=== PATIENT | female | born 1965 | race Caucasian/White ===

== ENCOUNTER 2016-10-22 17:03 | Emergency (ER) | payer MEDICARE, MEDICAID ==
[2016-10-22 17:54] VITALS: BMI 23.9
[2016-10-22 17:56] VITALS: TEMP 99.7
[2016-10-22 18:37] LABS: AUTOMATED BASOPHIL 0.2 % (0-2); AUTOMATED EOSINOPHIL 1.5 % (0-5); AUTOMATED LYMPH 32.6 % (17-44); AUTOMATED MONOCYTE 5.4 % (3-10); AUTOMATED NEUTROPHIL 60.3 % (45-76); MPV 7.3 fL (7.4-10.4)
[2016-10-22 18:47] LABS: BLOOD UREA NITROGEN 8 MG/DL (7-17); CALC CORRECTED 8.9 MG/DL (8.4-10.2); CALCIUM 8.8 MG/DL (8.4-10.2); CALCULATED OSMOLALITY 247 MOs/Kg (270-290); CHLORIDE 97 mEq/L (98-107); ETOH-MGDL < 10 mg/dL; GLUCOSE 107 MG/DL (70-99); SODIUM LEVEL 129 mEq/L (137-146); TOTAL PROTEIN 7.2 G/DL (6.3-8.2)
[2016-10-22 21:36] LABS: ALL NEG? NO
[2016-10-22 21:43] LABS: MDMA* NEG (NEGATIVE); METHAMPHETAMINES NEG (NEGATIVE); OXYCODONE NEG (NEGATIVE)
[2016-10-22 21:48] VITALS: PULSE 70
[2016-10-22 21:51] LABS: LEUKOCYTES/URINE TRACE (NEGATIVE); NITRITE/URINE NEG (NEGATIVE); URINE OCCULT BLOOD NEG (NEG/TRACE)
--- NOTE | 2016-10-22 22:26 | EDPRACDOC ---
- General Information Chief Complaint: Psychiatric Illness Stated Complaint: PSYCH EVAL (WRIST LAC) Time Seen by Provider: 10/22/16 18:27 Information Source: Patient Mode of Arrival: Ambulance Home Medications: Home Medications Levothyroxine Sodium [Synthroid] 125 mcg PO DAILY 09/03/12 Trazodone HCl 150 mg PO HS 09/03/12 Levan [Eskalith] 300 mg PO BID 11/23/12 Venlafaxine HCl ER [Effexor Xr] 300 mg PO DAILY 05/30/14 Amphet Asp/Amphet/D-Amphet [Adderall 10 mg Tablet] 10 mg PO BID 08/28/14 Haloperidol [Haldol] 2 mg PO BID 12/20/14 Prazosin [Minipres] 2 mg PO HS 07/12/15 Clonazepam [Klonopin] 1 mg PO TID PRN #12 tablet 10/07/16 Allergies/Adverse Reactions: Allergies Allergy/AdvReac Type Severity Reaction Status Date / Time NSAIDS (Non-Steroidal Allergy Severe PHYCHOTIC Verified 10/22/16 17:54 Anti-Inflamma BREAK DOWN [Nsaids] bupropion HCl Allergy Mild COULD NOT Verified 10/22/16 17:54 [From Wellbutrin] WALK metoclopramide HCl Allergy Mild RASH Verified 10/22/16 17:54 [From Reglan] ondansetron [From ZOFRAN ODT] Allergy Mild RASH AND Verified 10/22/16 17:54 EYE PROBLEM Penicillins Allergy Mild RASH Verified 10/22/16 17:54 prochlorperazine edisylate Allergy Mild RASH Verified 10/22/16 17:54 [From Compazine] prochlorperazine maleate Allergy Mild RASH Verified 10/22/16 17:54 [From Compazine] sumatriptan [From Imitrex] Allergy Mild CAN NOT Verified 10/22/16 17:54 WALK sumatriptan succinate Allergy Mild CAN NOT Verified 10/22/16 17:54 [From Imitrex] WALK dexamethasone [From Decadron] Allergy See Verified 10/22/16 17:54 Comments dexamethasone sod phosphate Allergy See Verified 10/22/16 17:54 [From Decadron] Comments Neuromuscular Blockers, Allergy See Verified 10/22/16 17:54 Steroidal Comments [Steroidal Neuromuscular Blockers] prednisone Allergy Anaphylaxis Verified 10/22/16 17:54 * ziprasidone HCl [From Geodon] Allergy Agitation Verified 10/22/16 17:54 ziprasidone mesylate Allergy Agitation Verified 10/22/16 17:54 [From Tatiana] - History of Present Illness Onset: TODAY HPI: THE PATIENT RECENTLY DISCHARGED FROM [facility]. STATES THAT SHE WAS STARTED ON NEW MEDICATIONS, AND SHE FEELS GREAT. TODAY SHE WAS THINKING ABOUT TRAUMATIC EXPERIENCES IN HER CHILDHOOD IN HER PAST. SHE THEN TOOK FINGER NAIL CLIPPERS AND THEN A KNIFE AND PUT MULTIPLE SCRATCHES ON EACH OVER FOREARM. SHE STATES THAT SHE DID THIS TO RELIEVE STRESS. THIS SHE DID NOT WANT TO HURT HERSELF HER SHE DID NOT WANT TO HURT OTHERS. HOWEVER PATIENT'S MOTHER CALLED 911 BECAUSE SHE THOUGHT THE PATIENT HAD INTENTIONS OF COMMITTING SUICIDE OR KILLING SOMEBODY ELSE. UPON ARRIVAL TO THE EMERGENCY DEPARTMENT PATIENT IMMEDIATELY WANTED TO LEAVE WITHOUT ANY EVALUATION OF THEREFORE SHE WAS MADE BY AN INVOLUNTARY COMMITMENT BY ME. Relevant History: Reports: Depression, Anxiety Tetanus Up To Date?: Yes Associated Signs and Symptoms: Reports: Anxiety Other History: TETANUS UP-TO-DATE - Treatment Prior to ED Arrival Reported Medications/Treatment ST[employer]OR EMS Treatment BLS IV No ED Past Medical History - History Reviewed Yes Nurses notes reviewed and agree except as marked - Patient Medical History Neurological History: Reports: Migraine Cardiac History: Reports: Hypercholesterolemia. Denies: Hypertension, Heart Attack Psychological History: Reports: Depression, Anxiety. Denies: Substance Use Disorder Systemic History: Reports: Cancer (SKIN/ear) Surgical History: Reports: Cholecystectomy, Other (KNEE, JAW) - Social Medical History Smoking Status: Current some day smoker Social History: Reports: Marijuana Use. Denies: Substance Use Disorder ETOH: None Substance Abuse: None Lives With: Family Lives In: Home EDM Review of Systems - Review of Systems ROS Negative Except as Marked: Yes All systems reviewed and were negative except as marked - Physical Exam Constitutional: Alert (Awake), No apparent distress (CALM COOPERATIVE.) Oriented to: Time, Person, Place Last recorded Vital Signs: Last Vital Signs Temp 99.7 F 10/22/16 17:54 Pulse 70 10/22/16 21:30 Resp 20 10/22/16 21:30 BP 106/70 10/22/16 21:30 Pulse Ox 98 10/22/16 21:30 Oxygen Pulse Oxygen Saturation 98 O2 Device Room Air Oxygen Flow Rate Fraction of Inspired Oxygen ( FIO2) - HEENT Head: Normal ( normocephalic) Eye Exam: Normal (PERRL, EOMI, Sclera white) Oropharynx: Normal (Pharynx:Moist without exudate,Gums-no swelling) Tympanic Membrane: Normal ENT EAC: Normal TMJ: Normal Nose: No Symptoms Reported (septum midline) Neck: Normal (FROM, trachea at midline) - Respiratory/Cardiovascular Respiratory: Normal - CTA (BBS clear to auscultation without adventitious sounds ) Cardiovascular: Normal (RRR without murmur, gallop or rub) - GI Auscultation: Normal (NABS) Palpation: Normal (Soft,No rebound or guarding, non distended) Tenderness: Non tender Enciso's Sign: Negative - Musculoskeletal Back: Normal (Non-Tender) Extremities: Normal (Normal tone, Pulses 2+ No cyanosis or edema, FROM), Other ( BOTH FOREARMS PREDOMINANT ON THE LEFT HAVE MULTIPLE LINEAR ABRASIONS PERPENDICULAR TO THE LONG AXIS OF THE FOREARM THIS HEMOSTATIC WOUNDS ARE NOT NOT REQUIRING SURGICAL REPAIR.) - Integumentary Skin: Normal, Warm, Dry Lymphatics: Normal (no adenopathy) - Neurologic Memory Impaired: Normal Motor Function: Normal (Normal tone, Pulses 2+ No cyanosis or edema, FROM) Cranial Nerve: Normal (CN II-X11 intact sensation, strength 5/5) Cerebellar: Normal Mood Description: Normal Perception: Normal - Re-evaluation Re-evaluation 3 Re-evaluation Time: 23:39 DISCUSSED WITH ANIRUDH OF THERAPEUTIC ALTERNATIVES WE AGREE OUTPATIENT MANAGEMENT APPROPRIATE. - Results 10/22/16 18:10 10/22/16 18:10 WBC 9.6 xk/uL (3.8-10.8) 10/22/16 18:10 RBC 3.69 xM/uL (4.20-5.40) L 10/22/16 18:10 Hgb 12.5 g/dL (12.0-16.0) 10/22/16 18:10 Hct 35.8 % (36-47) L 10/22/16 18:10 MCV 97 fL (81-99) 10/22/16 18:10 MCH 33.9 pg (27-32) H 10/22/16 18:10 MCHC 34.9 g/dl (33-36) 10/22/16 18:10 RDW 14.5 % (11.5-14.5) 10/22/16 18:10 Plt Count 235 xk/uL (130-400) 10/22/16 18:10 MPV 7.3 fL (7.4-10.4) L 10/22/16 18:10 Neut % (Auto) 60.3 % (45-76) 10/22/16 18:10 Lymph % (Auto) 32.6 % (17-44) 10/22/16 18:10 [place] % (Auto) 5.4 % (3-10) 10/22/16 18:10 Eos % (Auto) 1.5 % (0-5) 10/22/16 18:10 Baso % (Auto) 0.2 % (0-2) 10/22/16 18:10 Absolute Neuts (auto) 5.76 xk/uL (1.7-8.2) 10/22/16 18:10 Absolute Lymphs (auto) 3.07 xk/uL (0.65-4.75) 10/22/16 18:10 Sodium 129 mEq/L (137-146) L 10/22/16 18:10 Potassium 3.8 mEq/L (3.5-5.1) 10/22/16 18:10 Chloride 97 mEq/L (98-107) L 10/22/16 18:10 Carbon Dioxide 20 mMOL/L (22-33) L 10/22/16 18:10 Anion Gap 16 mEq/L (8-16) 10/22/16 18:10 BUN 8 MG/DL (7-17) 10/22/16 18:10 Creatinine 0.80 MG/DL (0.52-1.04) 10/22/16 18:10 Estimated GFR (MDRD) > 60 mL/min (>=60) 10/22/16 18:10 Glucose 107 MG/DL (70-99) H 10/22/16 18:10 Calculated Osmolality 247 MOs/Kg (270-290) L 10/22/16 18:10 Calcium 8.8 MG/DL (8.4-10.2) 10/22/16 18:10 Corrected Calcium 8.9 MG/DL (8.4-10.2) 10/22/16 18:10 Total Bilirubin 0.3 MG/DL (0.2-1.3) 10/22/16 18:10 AST 16 IU/L (14-36) 10/22/16 18:10 ALT 30 IU/L (9-52) 10/22/16 18:10 Alkaline Phosphatase 63 IU/L (38-126) 10/22/16 18:10 Total Protein 7.2 G/DL (6.3-8.2) 10/22/16 18:10 Albumin 3.9 G/DL (3.5-5.0) 10/22/16 18:10 Urine Color Yellow 10/22/16 21:35 Urine Clarity Clear 10/22/16 21:35 Urine pH 7.0 (5.0-8.0) 10/22/16 21:35 Ur Specific [place] 1.005 (1.003-1.035) 10/22/16 21:35 Urine Protein Neg (NEG/TRACE) 10/22/16 21:35 Urine Glucose (UA) Neg (NEGATIVE) 10/22/16 21:35 Urine Ketones Neg (NEGATIVE) 10/22/16 21:35 Urine Occult Blood Neg (NEG/TRACE) 10/22/16 21:35 Urine Nitrite Neg (NEGATIVE) 10/22/16 21:35 Urine Bilirubin Neg (NEGATIVE) 10/22/16 21:35 Urine Urobilinogen <2.0 MG/DL (0-1) 10/22/16 21:35 Ur Leukocyte Esterase Trace (NEGATIVE) H 10/22/16 21:35 Urine RBC 2-5 (0-5) 10/22/16 21:35 Urine WBC 2-5 (0-5) 10/22/16 21:35 Ur Epithelial Cells 2+ 10/22/16 21:35 Urine Bacteria 1+ (NEG/FEW) H 10/22/16 21:35 Urine Opiates Screen Neg (NEGATIVE) 10/22/16 21:35 Ur Oxycodone Screen Neg (NEGATIVE) 10/22/16 21:35 Urine Methadone Screen Neg (NEGATIVE) 10/22/16 21:35 Ur Barbiturates Screen Neg (NEGATIVE) 10/22/16 21:35 Ur Tricyclics Screen Neg (NEGATIVE) 10/22/16 21:35 Ur Phencyclidine Scrn Neg (NEGATIVE) 10/22/16 21:35 Ur Amphetamines Screen *positive* (NEGATIVE) H 10/22/16 21:35 U Methamphetamines Scrn Neg (NEGATIVE) 10/22/16 21:35 Urine MDMA Screen Neg (NEGATIVE) 10/22/16 21:35 U Benzodiazepines Scrn *positive* (NEGATIVE) H 10/22/16 21:35 Urine Cocaine Screen Neg (NEGATIVE) 10/22/16 21:35 Ur THC Screen Neg (NEGATIVE) 10/22/16 21:35 Plasma/Serum Ethyl Alc % (<0.01) 10/22/16 18:10 Lab Results 10/22/16 10/22/16 10/22/16 21:35 21:35 18:10 WBC 9.6 RBC 3.69 L Hgb 12.5 Hct 35.8 L MCV 97 MCH 33.9 H MCHC 34.9 RDW 14.5 Plt Count 235 MPV 7.3 L Neut % (Auto) 60.3 Lymph % (Auto) 32.6 [place] % (Auto) 5.4 Eos % (Auto) 1.5 Baso % (Auto) 0.2 Absolute Neuts (auto) 5.76 Absolute Lymphs (auto) 3.07 Sodium Potassium Chloride Carbon Dioxide Anion Gap BUN Creatinine Estimated GFR (MDRD) Glucose Calculated Osmolality Calcium Corrected Calcium Total Bilirubin AST ALT Alkaline Phosphatase Total Protein Albumin Urine Color Yellow Urine Clarity Clear Urine pH 7.0 Ur Specific [place] 1.005 Urine Protein Neg Urine Glucose (UA) Neg Urine Ketones Neg Urine Occult Blood Neg Urine Nitrite Neg Urine Bilirubin Neg Urine Urobilinogen <2.0 Ur Leukocyte Esterase Trace H Urine RBC 2-5 Urine WBC 2-5 Ur Epithelial Cells 2+ Urine Bacteria 1+ H Urine Opiates Screen Neg Ur Oxycodone Screen Neg Urine Methadone Screen Neg Ur Barbiturates Screen Neg Ur Tricyclics Screen Neg Ur Phencyclidine Scrn Neg Ur Amphetamines Screen *positive* H U Methamphetamines Scrn Neg Urine MDMA Screen Neg U Benzodiazepines Scrn *positive* H Urine Cocaine Screen Neg Ur THC Screen Neg Plasma/Serum Ethyl Alc 10/22/16 18:10 WBC RBC Hgb Hct MCV MCH MCHC RDW Plt Count MPV Neut % (Auto) Lymph % (Auto) [place] % (Auto) Eos % (Auto) Baso % (Auto) Absolute Neuts (auto) Absolute Lymphs (auto) Sodium 129 L Potassium 3.8 Chloride 97 L Carbon Dioxide 20 L Anion Gap 16 BUN 8 Creatinine 0.80 Estimated GFR (MDRD) > 60 Glucose 107 H Calculated Osmolality 247 L Calcium 8.8 Corrected Calcium 8.9 Total Bilirubin 0.3 AST 16 ALT 30 Alkaline Phosphatase 63 Total Protein 7.2 Albumin 3.9 Urine Color Urine Clarity Urine pH Ur Specific [place] Urine Protein Urine Glucose (UA) Urine Ketones Urine Occult Blood Urine Nitrite Urine Bilirubin Urine Urobilinogen Ur Leukocyte Esterase Urine RBC Urine WBC Ur Epithelial Cells Urine Bacteria Urine Opiates Screen Ur Oxycodone Screen Urine Methadone Screen Ur Barbiturates Screen Ur Tricyclics Screen Ur Phencyclidine Scrn Ur Amphetamines Screen U Methamphetamines Scrn Urine MDMA Screen U Benzodiazepines Scrn Urine Cocaine Screen Ur THC Screen Plasma/Serum Ethyl Alc - EKG EKG #1 EKG Time: 18:02 -: Yes EKG interpreted by me Rate: bpm: 81 [place]: Normal Rhythm: NSR Block: None Hypertrophy: None ST: Nonsp - Additional Information Additional Information: UNCLEAR IF THERE IS ANY SUICIDAL HOMICIDAL IDEATION AT THIS TIME. THIS APPEARS TO BE MORE CUTTING RELATED TO ANXIETY OPPOSED TO WANTING TO CAUSE HARM TO HER HEALTH. IN FACT SHE WANTS THE ABRASIONS DRESSED SO DID NOT GET INFECTED. AT THIS TIME WILL DEFER TO THERAPEUTIC ALTERNATIVES REGARDING OUTPATIENT VERSUS INPATIENT TREATMENT. - Departure Disposition: Home Condition: Stable Final Diagnosis: Deliberate self-cutting, Anxiety Instructions: Abrasion (ED) Referrals: None,No Provider [Primary Care Provider] - One Week
[2016-10-23 00:01] VITALS: BP 106/72
== END 2016-10-22 23:55 | disposition home or self-care (01) ==
LOC: ED 17:03
DX: S61.519A Laceration without foreign body of unspecified wrist, initial encounter (principal); Y28.9XXA Contact with unspecified sharp object, undetermined intent, initial encounter; Y93.9 Activity, unspecified
CPT/HCPCS: 36415; 80053; 80178; 80307; 81001; 85025; 86592; 93005; 99284

== ENCOUNTER 2016-11-09 14:05 | Emergency (ER) | payer MEDICARE, MEDICAID ==
[2016-11-09 14:21] VITALS: TEMP 99.6; BMI 24.7
[2016-11-09 14:37] LABS: AUTOMATED BASOPHIL 1.7 % (0-2); AUTOMATED LYMPH 32.4 % (17-44); AUTOMATED MONOCYTE 4.8 % (3-10); AUTOMATED NEUTROPHIL 60.1 % (45-76)
[2016-11-09 14:49] LABS: PARTIAL THROMB. TIME 25.2 SEC (22-35)
[2016-11-09 14:51] LABS: BLOOD UREA NITROGEN 6 MG/DL (7-17); CALCIUM 9.7 MG/DL (8.4-10.2); CALCULATED OSMOLALITY 249 MOs/Kg (270-290); CHLORIDE 99 mEq/L (98-107); GLUCOSE 98 MG/DL (70-99); SODIUM LEVEL 130 mEq/L (137-146); TOTAL PROTEIN 7.2 G/DL (6.3-8.2)
--- NOTE | 2016-11-09 16:39 | EDPRACDOC ---
- General Information Chief Complaint: Generalized Weakness Stated Complaint: LOW SODIUM SENT BY DOCTOR TO ED Time Seen by Provider: 11/09/16 16:23 Information Source: Patient Home Medications: Home Medications Trazodone HCl 150 mg PO HS 09/03/12 Venlafaxine HCl ER [Effexor Xr] 300 mg PO DAILY 05/30/14 Prazosin [Minipres] 2 mg PO HS 07/12/15 Clonazepam [Klonopin] 1 mg PO TID PRN #12 tablet 10/07/16 Dextroamphetamine/Amphetamine [Adderall Xr 10 mg Capsule] 10 mg PO BID 11/09/16 Lamotrigine [Lamictal] 25 mg PO BID 11/09/16 Levothyroxine Sodium [Levothroid] 175 mcg PO DAILY 11/09/16 Allergies/Adverse Reactions: Allergies Allergy/AdvReac Type Severity Reaction Status Date / Time NSAIDS (Non-Steroidal Allergy Severe PHYCHOTIC Verified 11/09/16 15:09 Anti-Inflamma BREAK DOWN [Nsaids] bupropion HCl Allergy Mild COULD NOT Verified 11/09/16 15:09 [From Wellbutrin] WALK metoclopramide HCl Allergy Mild RASH Verified 11/09/16 15:09 [From Reglan] ondansetron [From ZOFRAN ODT] Allergy Mild RASH AND Verified 11/09/16 15:09 EYE PROBLEM Penicillins Allergy Mild RASH Verified 11/09/16 15:09 prochlorperazine edisylate Allergy Mild RASH Verified 11/09/16 15:09 [From Compazine] prochlorperazine maleate Allergy Mild RASH Verified 11/09/16 15:09 [From Compazine] sumatriptan [From Imitrex] Allergy Mild CAN NOT Verified 11/09/16 15:09 WALK sumatriptan succinate Allergy Mild CAN NOT Verified 11/09/16 15:09 [From Imitrex] WALK dexamethasone [From Decadron] Allergy See Verified 11/09/16 15:09 Comments dexamethasone sod phosphate Allergy See Verified 11/09/16 15:09 [From Decadron] Comments Neuromuscular Blockers, Allergy See Verified 11/09/16 15:09 Steroidal Comments [Steroidal Neuromuscular Blockers] prednisone Allergy Anaphylaxis Verified 11/09/16 15:09 * ziprasidone HCl [From Geodon] Allergy Agitation Verified 11/09/16 15:09 ziprasidone mesylate Allergy Agitation Verified 11/09/16 15:09 [From Tatiana] - History of Present Illness Onset: unknown HPI: PT REPORTS SHE WAS SENT BY PER PCP AT [facility]. TOLD TO COME TO FOR LOW SODIUM. IN ED SODIUM 130. NO OTHER SYMPTOMS. ED Past Medical History - Patient Medical History Neurological History: Reports: Migraine Cardiac History: Reports: Hypercholesterolemia. Denies: Hypertension, Heart Attack Psychological History: Reports: Depression, Anxiety. Denies: Substance Use Disorder Systemic History: Reports: Cancer (SKIN/ear) Surgical History: Reports: Cholecystectomy, Other (KNEE, JAW) - Social Medical History Smoking Status: Heavy tobacco smoker (5 or more cigarettes/day or daily pipe/ cigar) Social History: Reports: Marijuana Use. Denies: Substance Use Disorder EDM Review of Systems - Review of Systems ROS Negative Except as Marked: Yes All systems reviewed and were negative except as marked Constitutional: No Symptoms Reported Eyes: No Symptoms Reported Respiratory: No Symptoms Reported Cardiovascular: No Symptoms Reported Gastrointestinal: No Symptoms Reported Genitourinary: No Symptoms Reported Neurological: No Symptoms Reported - Physical Exam Constitutional: Alert (Awake), No apparent distress Oriented to: Time, Person, Place Last recorded Vital Signs: Last Vital Signs Temp 99.6 F 11/09/16 14:19 Pulse 82 11/09/16 14:21 Resp 18 11/09/16 14:21 BP 125/58 L 11/09/16 14:21 Pulse Ox 99 11/09/16 14:21 Oxygen Pulse Oxygen Saturation 99 O2 Device Room Air Oxygen Flow Rate Fraction of Inspired Oxygen ( FIO2) - HEENT Head: Normal ( normocephalic) Eye Exam: Normal (PERRL, EOMI, Sclera white) Oropharynx: Normal (Pharynx:Moist without exudate,Gums-no swelling) Nose: No Symptoms Reported (septum midline) Neck: Normal (FROM, trachea at midline) - Respiratory/Cardiovascular Respiratory: Normal - CTA (BBS clear to auscultation without adventitious sounds ) Cardiovascular: Normal (RRR without murmur, gallop or rub) - GI Auscultation: Normal (NABS) Palpation: Normal (Soft,No rebound or guarding, non distended) Tenderness: Non tender Enciso's Sign: Negative - Musculoskeletal Back: Normal (Non-Tender) Extremities: Normal (Normal tone, Pulses 2+ No cyanosis or edema, FROM) - Integumentary Skin: Normal, Warm, Dry Lymphatics: Normal (no adenopathy) - Neurologic Memory Impaired: Normal Motor Function: Normal (Normal tone, Pulses 2+ No cyanosis or edema, FROM) Cranial Nerve: Normal (CN II-X11 intact sensation, strength 5/5) Cerebellar: Normal Mood Description: Normal Perception: Normal - Results 11/09/16 14:25 11/09/16 14:25 WBC 8.3 xk/uL (3.8-10.8) 11/09/16 14:25 RBC 3.95 xM/uL (4.20-5.40) L 11/09/16 14:25 Hgb 13.2 g/dL (12.0-16.0) 11/09/16 14:25 Hct 38.3 % (36-47) 11/09/16 14:25 MCV 97 fL (81-99) 11/09/16 14:25 MCH 33.3 pg (27-32) H 11/09/16 14:25 MCHC 34.3 g/dl (33-36) 11/09/16 14:25 RDW 14.3 % (11.5-14.5) 11/09/16 14:25 Plt Count 239 xk/uL (130-400) 11/09/16 14:25 MPV 7.0 fL (7.4-10.4) L 11/09/16 14:25 Neut % (Auto) 60.1 % (45-76) 11/09/16 14:25 Lymph % (Auto) 32.4 % (17-44) 11/09/16 14:25 [place] % (Auto) 4.8 % (3-10) 11/09/16 14:25 Eos % (Auto) 1.0 % (0-5) 11/09/16 14:25 Baso % (Auto) 1.7 % (0-2) 11/09/16 14:25 Absolute Neuts (auto) 4.98 xk/uL (1.7-8.2) 11/09/16 14:25 Absolute Lymphs (auto) 2.66 xk/uL (0.65-4.75) 11/09/16 14:25 PT 10.6 SEC (9.2-11.2) 11/09/16 14:25 INR 1.0 11/09/16 14:25 APTT 25.2 SEC (22-35) 11/09/16 14:25 Sodium 130 mEq/L (137-146) L 11/09/16 14:25 Potassium 4.3 mEq/L (3.5-5.1) 11/09/16 14:25 Chloride 99 mEq/L (98-107) 11/09/16 14:25 Carbon Dioxide 20 mMOL/L (22-33) L 11/09/16 14:25 Anion Gap 15 mEq/L (8-16) 11/09/16 14:25 BUN 6 MG/DL (7-17) L 11/09/16 14:25 Creatinine 0.70 MG/DL (0.52-1.04) 11/09/16 14:25 Estimated GFR (MDRD) > 60 mL/min (>=60) 11/09/16 14:25 Glucose 98 MG/DL (70-99) 11/09/16 14:25 Calculated Osmolality 249 MOs/Kg (270-290) L 11/09/16 14:25 Calcium 9.7 MG/DL (8.4-10.2) 11/09/16 14:25 Total Bilirubin 0.4 MG/DL (0.2-1.3) 11/09/16 14:25 AST 18 IU/L (14-36) 11/09/16 14:25 ALT 23 IU/L (9-52) 11/09/16 14:25 Alkaline Phosphatase 69 IU/L (38-126) 11/09/16 14:25 Troponin I < 0.01 ng/mL (<.04) 11/09/16 14:25 Total Protein 7.2 G/DL (6.3-8.2) 11/09/16 14:25 Albumin 4.1 G/DL (3.5-5.0) 11/09/16 14:25 Lab Results 11/09/16 11/09/16 11/09/16 14:25 14:25 14:25 WBC 8.3 RBC 3.95 L Hgb 13.2 Hct 38.3 MCV 97 MCH 33.3 H MCHC 34.3 RDW 14.3 Plt Count 239 MPV 7.0 L Neut % (Auto) 60.1 Lymph % (Auto) 32.4 [place] % (Auto) 4.8 Eos % (Auto) 1.0 Baso % (Auto) 1.7 Absolute Neuts (auto) 4.98 Absolute Lymphs (auto) 2.66 PT 10.6 INR 1.0 APTT 25.2 Sodium 130 L Potassium 4.3 Chloride 99 Carbon Dioxide 20 L Anion Gap 15 BUN 6 L Creatinine 0.70 Estimated GFR (MDRD) > 60 Glucose 98 Calculated Osmolality 249 L Calcium 9.7 Total Bilirubin 0.4 AST 18 ALT 23 Alkaline Phosphatase 69 Troponin I < 0.01 Total Protein 7.2 Albumin 4.1 Decision Time to Discharge: 16:40 - Departure Yes I personally saw and evaluated the patient. Disposition: Home Condition: Stable Final Diagnosis: Well adult exam Instructions: Weakness (General) Education/Counseling Given To: Patient, Family Member Education/Counseling Given Regarding: Diagnosis Referrals: Gustavo Verdin PA [Primary Care Provider] - One Week Prescriptions: No Action Trazodone HCl 150 mg PO HS Venlafaxine HCl ER [Effexor Xr] 300 mg PO DAILY Prazosin [Minipres] 2 mg PO HS Clonazepam [Klonopin] 1 mg PO TID PRN #12 tablet PRN Reason: Anxiety Dextroamphetamine/Amphetamine [Adderall Xr 10 mg Capsule] 10 mg PO BID Levothyroxine Sodium [Levothroid] 175 mcg PO DAILY Lamotrigine [Lamictal] 25 mg PO BID
[2016-11-09 16:56] VITALS: BP 102/74; PULSE 68
== END 2016-11-09 16:56 | disposition home or self-care (01) ==
LOC: ED 14:05
DX: R53.1 Weakness (principal)
CPT/HCPCS: 36415; 80053; 84484; 85025; 85610; 85730; 99284